=== PATIENT | female | born 1990 | race Hispanic/Latino ===

== ENCOUNTER 2022-03-17 18:55 | Emergency (ER) | payer MEDICAID, SELFPAY ==
[2022-03-17 18:59] VITALS: BP 164/100; PULSE 97; RESP 18; TEMP 36.7; O2SAT 100
--- NOTE | 2022-03-17 19:19 | ED.FEMALEGU ---
HPI - Female Genitourinary General Chief complaint: Vaginal Bleeding Stated complaint: vaginal bleeding Time Seen by Provider: 03/17/22 19:11 History of Present Illness HPI Narrative: 32-year-old female presented to the emergency department for evaluation of vaginal bleeding. Patient states that she did complete her menstrual cycle approximately 2 weeks ago and then started having the bleeding yesterday. Patient states that she is having some lower abdominal cramping. Patient denies any current abdominal pain. Patient denies any associated nausea vomiting or diarrhea. Patient reports she is on control but did miss a few days and then restarted taking the control. Patient guest is very upset that the patient has a male physician. Patient states that she is okay with me being her physician during this visit. Related Data Allergies Allergy/AdvReac Type Severity Reaction Status Date / Time Sulfa (Sulfonamide Allergy Hives Verified 03/17/22 19:57 Antibiotics) Review of Systems Review of Systems: CONSTITUTIONAL: Denies fever, chills, or sweats. EYES: Denies visual changes, redness, or discharge. ENT: Denies rhinorrhea, congestion, sore throat, or otalgia. CARDIOVASCULAR: Denies chest pain, palpitations, or edema. RESPIRATORY: Denies cough or dyspnea. GASTROINTESTINAL: See HPI GENITOURINARY: Denies dysuria or hematuria. SKIN: Denies rash or itching. MUSCULOSKELETAL: Denies back pain, joint pain, or myalgia. NEUROLOGIC: Denies headache, numbness, or weakness. Exam Narrative: APPEARANCE: Well appearing, no pain, no distress, well-nourished. HEAD: normocephalic, atraumatic. EYES: PERRLA/EOMI, conjunctivae clear. NOSE: Normal no drainage NECK: Supple. No adenopathy, no masses. RESPIRATORY: Airway patent, respirations nonlabored. Clear to auscultation bilaterally, no rales, rhonchi, wheezing. CARDIOVASCULAR: Regular rate and rhythm without murmurs rubs or gallops. Pelvic exam: No vaginal injury, some vaginal bleeding into the vaginal vault, no hemorrhage. Normal-appearing cervix. ABDOMINAL: Soft, nontender, nondistended, normal bowel sounds MUSCULOSKELETAL: Moves all extremities. Strength/ROM intact, No edema, No calf tenderness. NEURO: Alert. Cranial nerves II through XII intact. Grossly intact SKIN: Warm, dry. Normal Color Course Course Emergency Course: Patient did have vaginal bleeding but no active hemorrhage. Patient did have orthostatic vital signs when standing. Patient will be treated with IV fluids. Patient was mildly orthostatic but did improve with rehydration. Patient's hemoglobin has 14.3. Patient's CMP is within normal limits. UA did show evidence of blood but this is thought to be contamination. Patient does have dysfunctional uterine bleeding and this is thought to be due to her start and stop of her control. Patient was advised of close follow-up with [facility]. Patient was advised on reasons to return to the emergency department. All question concerns were addressed and patient was well-appearing at time of discharge Vital Signs Vital signs: Vital Signs Temperature 98.1 F 03/17/22 18:59 Pulse Rate 97 03/17/22 18:59 Respiratory Rate 18 03/17/22 18:59 Blood Pressure 164/100 H 03/17/22 18:59 Pulse Oximetry 100 03/17/22 18:59 Oxygen Delivery Room Air 03/17/22 18:59 Temperature 98.1 F 03/17/22 18:59 Pulse Rate 85 03/17/22 20:44 Respiratory Rate 20 03/17/22 20:44 Blood Pressure 135/91 H 03/17/22 20:44 Pulse Oximetry 100 03/17/22 18:59 Oxygen Delivery Room Air 03/17/22 18:59 MDM - Female Genitourinary Lab Data Attestation: I reviewed the patient's lab results. 03/17/22 19:33 03/17/22 19:33 Labs: Lab Results 03/17/22 03/17/22 03/17/22 Range/Units 19:33 19:33 19:33 WBC 6.0 (4.5-10.0) K/mm3 RBC 5.64 H (4.2-5.4) M/mm3 Hgb 14.3 (12.0-15.0) g/dL Hct 46.1 (37.0-47.0) % MCV 81.7 (80-10
[2022-03-17 19:35] VITALS: BP 130/107; PULSE 91
[2022-03-17 19:36] VITALS: BP 138/104; PULSE 97
[2022-03-17 19:37] VITALS: BP 117/82; PULSE 104
[2022-03-17 19:43] LABS: Basophils Percent Auto 0.5 % (0.2-1.2); Eosinophils Absolute Auto 0.1 K/mm3 (0-0.3); Hematocrit 46.1 % (37.0-47.0); Hemoglobin 14.3 g/dL (12.0-15.0); Immature Granulocyte Absolute 0.01 K/mm3 (0.00-0.031); Immature Granulocyte Percent A 0.2 % (0-0.5); Lymphocytes Absolute Auto 2.67 K/mm3 (0.9-3.2); Lymphocytes Percent Auto 44.4 % (18.3-44.2); Mean Corpuscular Hemoglobin 25.4 pg (26-34); Mean Corpuscular Volume 81.7 fl (80-100); Monocytes Absolute Auto 0.3 K/mm3 (0.1-0.6); Neutrophils Absolute Auto 2.9 K/mm3 (1.3-6.7); Neutrophils Percent Auto 47.9 % (45.5-73.1); Platelet Count Result 366 k/mm3 (150-375); Red Blood Count 5.64 M/mm3 (4.2-5.4); Red Cell Distribution Width 15.4 % (11.5-14.5)
[2022-03-17 19:53] LABS: Alanine Aminotransferase 18 U/L (6-35); Albumin Level 4.8 g/dL (3.5-5.1); Alkaline Phosphatase 55 U/L (38-126); Anion Gap 6 mmol/L (8-16); Aspartate Amino Transferase 23 U/L (14-36); Bilirubin,Total 0.5 mg/dL (0.2-1.3); Blood Urea Nitrogen 9 mg/dL (7-17); Calcium 8.9 mg/dL (8.4-10.2); Carbon Dioxide 32 mmol/L (22-30); Chloride 101 mmol/L (98-107); Estimated Glomerular Filt Rate > 60; Glucose 136 mg/dL (65-110); Potassium 3.5 mmol/L (3.4-5.0); Prothrombin Time 12.5 Seconds (11.1-14.7); Sodium 139 mmol/L (137-145)
[2022-03-17 19:54] LABS: Appearance Urine Clear (Clear); Bilirubin Urine Negative (Negative); Blood Urine 2+ (Negative); Color Urine Yellow (Yellow); Glucose Urine UA 1+ mg/dL (Negative); Ketones Urine Negative (Negative); Leukocyte Esterase Ur Negative LEU/UL (Negative); Nitrate Urine Negative (Negative); Partial Thromboplastin Time 28.6 SECONDS (22.3-36.8); Protein Urine Negative (Negative); Urobilinogen Urine 0.2 mg/dL (<2.0)
[2022-03-17 19:55] LABS: Mucus Urine Rare /lpf; RBC Urine 21-50 /hpf (0-2); Squamous Epithelial Cell Urine Rare /hpf (Few); WBC Urine 0-3 /hpf
[2022-03-17] MEDS: SODIUM CHLORIDE 0.9% IV 1,000 ML 999 ML IV CONT (19:58)
[2022-03-17 20:01] LABS: Add Urine Microscopic? YES
[2022-03-17 20:44] VITALS: BP 135/91; PULSE 85; RESP 20
== END 2022-03-17 21:01 | disposition home or self-care (01) ==
PROVIDERS: Emergency Provider Emergency Medicine
DX: N93.9 Abnormal uterine and vaginal bleeding, unspecified (principal)
CPT/HCPCS: 36415; 80053; 81001; 81025; 85025; 85610; 85730; 96360; 99283; J7030